=== PATIENT | male | born 1990 | race Caucasian/White ===

== ENCOUNTER 2019-10-11 21:48 | Inpatient (IN) | payer OTHER ==
[~2019-10-11] VITALS: Ht 172.7 cm; Wt 72.6 kg
[2019-10-11] MEDS ORDERED: ONDANSETRON 4 MG/2 ML VIAL IV ONE (22:30)
[2019-10-11] MEDS ORDERED: IV NORMAL SALINE 1000 ML BAG IV ONE (22:30)
[2019-10-11 22:46] LABS: BASOPHILS # (AUTO) 0.1 K/uL (0.0-8.0); BASOPHILS % (AUTO) 2.6 % (0.0-2.0); EOSINOPHILS # (AUTO) 0.1 K/uL (0.0-0.7); EOSINOPHILS % (AUTO) 2.3 % (0.0-7.0); HEMATOCRIT 48.6 % (36.7-47.1); LYMPHOCYTES # (AUTO) 1.7 K/uL (20.0-40.0); LYMPHOCYTES % (AUTO) 41.5 % (20.5-51.5); MEAN CORPUSCULAR HEMOGLOBIN 33.5 uug (23.8-33.4); MEAN CORPUSCULAR HGB CONC 35 g/dL (32.5-36.3); MEAN CORPUSCULAR VOLUME 95.9 fL (73.0-96.2); MONOCYTES # (AUTO) 0.5 K/uL (2.0-10.0); NEUTROPHILS # (AUTO) 1.8 K/uL (1.8-8.9); NEUTROPHILS % (AUTO) 42.6 % (38.5-71.5); PLATELET COUNT (AUTO) 218 K/uL (152-348); RED BLOOD CELL COUNT(AUTO) 5.07 MIL/uL (4.06-5.63); WHITE BLOOD COUNT (AUTO) 4.2 K/uL (3.6-10.2)
[2019-10-11 22:55] LABS: *BILIRUBIN,URIN NEGATIVE (NEGATIVE); *BLOOD, URINE NEGATIVE (NEGATIVE); *CLARITY,URINE CLEAR (CLEAR); *COLOR,URINE YELLOW (YELLOW); *KETONES,URINE NEGATIVE (NEGATIVE); *UROBILINOGEN,URINE 0.2 E.U./dl (NORMAL); LEUKOCYTE ESTERASE ,URINE NEGATIVE (NEGATIVE); NITRITE, URINE NEGATIVE (NEGATIVE); UGLUCOSE NEGATIVE (NEGATIVE)
[2019-10-11 23:05] LABS: CREATININE 0.8 mg/dL (0.6-1.3); POTASSIUM 3.4 mmol/L (3.5-5.1)
[2019-10-11 23:09] LABS: BILIRUBIN,DIRECT 0.2 mg/dL (0.0-0.2); BILIRUBIN,TOTAL 0.8 mg/dL (0.2-1.0); TOTAL PROTEIN, SERUM 7.8 g/dL (6.4-8.2)
[2019-10-11 23:13] LABS: *AMPHETAMINE, URINE NEGATIVE (NEGATIVE); *BARBITURATE, URINE NEGATIVE (NEGATIVE); *CANNABINOID, URINE NEGATIVE (NEGATIVE); *COCCAINE, URINE NEGATIVE (NEGATIVE); *OPIATE, URINE NEGATIVE (NEGATIVE); *PHENCYCLIDINE SCREEN,URINE NEGATIVE (NEGATIVE)
--- NOTE | 2019-10-11 23:55 | NUR ---
PT STATED: " I WANT TO SEE A PSYCHIATRIST. I FEEL LIKE I AM DROWNING MYSELF TO , I AM DEPRESSED." PT STATES HE WANTED TO KILL HIMSELF BUT DENIES ANY PLAN PLACED ON SI PRECAUTIONS ERMD AWARE PT STILL NOT MEDICALLY CLEAR DUE TO TACHYCARDIA
--- NOTE | 2019-10-12 00:58 | NUR ---
WAITING FOR [facility] (INSURANCE) AUTH TO ADMIT DX: TACHYCARDIA BED TYPE: TELE UNSTABLE FOR TRANSFER AT THIS TIME
--- NOTE | 2019-10-12 02:00 | NUR ---
PENDING CALL BACK CASE MANAGE ([facility]): ASKED FOR VITALS. STATES THAT CUSTOMER RETENTION SPECIALIST WILL CALL BACK WITHIN 23HRS FR NOW FAXED CLIBNICALS TO [facility] [phone] CALL BACK NUMBER [phone]
[2019-10-12] MEDS ORDERED: CHLORDIAZEPOXIDE HCL 25 MG CAPSULE ONE (02:24)
[2019-10-12] MEDS ORDERED: CHLORDIAZEPOXIDE HCL 25 MG CAPSULE PO ONE (02:30)
--- NOTE | 2019-10-12 03:00 | NUR ---
[facility] APPROVED PT FOR INPATIENT OBSERVATION CALLED [facility] DIRECTOR INSTRUCTIONAL MATERIAL: VERÓNICA BYRD CALL FOR BED DONE: TELE RM [phone]
[2019-10-12] MEDS ORDERED: HYDROCODONE/APAP 5-325MG TABLET PO PRN (03:15)
[2019-10-12] MEDS ORDERED: MAGNESIUM HYDROXIDE 30 ML LIQUID UDC PO PRN (03:15)
[2019-10-12] MEDS ORDERED: ACETAMINOPHEN 325 MG TABLET PO PRN (03:15)
[2019-10-12] MEDS ORDERED: ONDANSETRON 4 MG/2 ML VIAL IV PRN (03:15)
[2019-10-12] MEDS ORDERED: Z GUARD REMEDY PASTE 57 GM TUBE TOP PRN (03:15)
[2019-10-12] MEDS ORDERED: TEMAZEPAM 15 MG CAPSULE PO PRN (03:15)
--- NOTE | 2019-10-12 03:24 | NUR ---
HAND OFF AND SBAR GIVEN TO MADISYN
--- NOTE | 2019-10-12 05:32 | NUR ---
transported pt via [facility] by nicole ramsey ra
[2019-10-12] MEDS: IV NS 1000 ML 1,000 ML IV PRN ×3 (05:41→20:26)
--- NOTE | 2019-10-12 05:45 | NUR ---
RECEIVED PATIENT AWAKE VIA GURNEY. A/OX4. APPROPRIATE WHEN APPROACHED. DENIES PAIN, JUST C/O OF "SHAKING." BP ELEVATED UPON ARRIVAL. ALL OTHER VSS. IVF HEPLOCK NOTED TO LEFT AC #18 GAUGE. ORIENTED PATIENT TO ROOM AND CALL LIGHT. ALL NEEDS ATTENDED. WILL CONTINUE TO MONITOR AND ASSESS. CALL LIGHT IN REACH.
[2019-10-12] MEDS: LORAZEPAM 2 MG/1 ML VIAL IV PRN ×2 (05:49→12:55)
--- NOTE | 2019-10-12 05:50 | NUR ---
PATIENT GIVEN ATIVAN 1MG IV PER CLIENT SUCCESS SPECIALIST. WILL CONTINUE TO MONITOR AND ASSESS. IVF INFUSING WELL TO LEFT AC. CALL LIGHT IN REACH. ALL NEEDS ATTENDED.
[2019-10-12] MEDS: PANTOPRAZOLE SODIUM 40 MG TABLET.DR PO SCH (06:11)
--- NOTE | 2019-10-12 06:40 | NUR ---
PATIENT AWAKE ON TELE SR 90'S. WILL CONTINUE TO MONITOR AND ASSESS.
[2019-10-12 06:47] VITALS: BP 137/94
[2019-10-12] MEDS: THIAMINE HCL 100 MG TABLET PO SCH (08:01)
[2019-10-12 11:12] VITALS: BP 116/68
[2019-10-12] MEDS ORDERED: POTASSIUM CHLORIDE 20 MEQ TAB.PRT.SR PO ONE (14:00)
[2019-10-12] MEDS: FOLIC ACID 1 MG TABLET PO SCH (14:27)
[2019-10-12 14:43] LABS: BASOPHILS # (AUTO) 0.1 K/uL (0.0-8.0); BASOPHILS % (AUTO) 1.4 % (0.0-2.0); EOSINOPHILS # (AUTO) 0.1 K/uL (0.0-0.7); EOSINOPHILS % (AUTO) 2.2 % (0.0-7.0); HEMATOCRIT 42.1 % (36.7-47.1); HEMOGLOBIN 14.5 g/dL (12.5-16.3); LYMPHOCYTES # (AUTO) 1.4 K/uL (20.0-40.0); LYMPHOCYTES % (AUTO) 29.1 % (20.5-51.5); MEAN CORPUSCULAR HGB CONC 34 g/dL (32.5-36.3); MEAN CORPUSCULAR VOLUME 95.9 fL (73.0-96.2); MONOCYTES # (AUTO) 0.6 K/uL (2.0-10.0); MONOCYTES % (AUTO) 12.7 % (0.0-11.0); NEUTROPHILS # (AUTO) 2.7 K/uL (1.8-8.9); NEUTROPHILS % (AUTO) 54.6 % (38.5-71.5); PLATELET COUNT (AUTO) 157 K/uL (152-348); RED BLOOD CELL COUNT(AUTO) 4.39 MIL/uL (4.06-5.63); WHITE BLOOD COUNT (AUTO) 4.9 K/uL (3.6-10.2)
[2019-10-12 14:55] LABS: CREATININE 0.9 mg/dL (0.6-1.3); MAGNESIUM 1.3 mg/dL (1.8-2.4); POTASSIUM 3.6 mmol/L (3.5-5.1)
[2019-10-12] MEDS: AZITHROMYCIN 250 MG TABLET PO SCH (15:28)
[2019-10-12] MEDS: CHLORDIAZEPOXIDE HCL 25 MG CAPSULE PO SCH (15:28)
[2019-10-12] MEDS: GUAIFENESIN LA 600 MG TABLET.SA PO SCH ×2 (15:28→20:29)
[2019-10-12] MEDS ORDERED: MAGNESIUM OXIDE 400 MG TABLET PO ONE (16:00)
[2019-10-12 16:12] VITALS: BP 124/78
--- NOTE | 2019-10-12 20:00 | NUR ---
RECEIVED PATIENT AWAKE IN BED. A/O X4. DENIES PAIN OR DISCOMFORT. NO RESP. DISTRESS NOTED. IVF INFUSING WELL TO LEFT AC #20 GAUGE. VSS. ON TELE SR. CALL LIGHT IN REACH. ALL NEEDS ATTENDED. WILL CONTINUE TO MONITOR AND ASSES.
[2019-10-12 20:07] VITALS: BP 123/75
[2019-10-13 00:20] VITALS: BP 137/83
[2019-10-13] MEDS: CHLORDIAZEPOXIDE HCL 25 MG CAPSULE PO SCH ×2 (02:35→13:55)
[2019-10-13 05:18] VITALS: BP 137/91
[2019-10-13] MEDS: IV NS 1000 ML 1,000 ML IV PRN ×2 (05:28→13:55)
[2019-10-13 05:56] LABS: BASOPHILS # (AUTO) 0.1 K/uL (0.0-8.0); BASOPHILS % (AUTO) 1.3 % (0.0-2.0); EOSINOPHILS # (AUTO) 0.2 K/uL (0.0-0.7); EOSINOPHILS % (AUTO) 2.7 % (0.0-7.0); HEMATOCRIT 43.9 % (36.7-47.1); HEMOGLOBIN 15.4 g/dL (12.5-16.3); LYMPHOCYTES # (AUTO) 1.6 K/uL (20.0-40.0); LYMPHOCYTES % (AUTO) 26.6 % (20.5-51.5); MEAN CORPUSCULAR HEMOGLOBIN 33.7 uug (23.8-33.4); MEAN CORPUSCULAR HGB CONC 35 g/dL (32.5-36.3); MEAN CORPUSCULAR VOLUME 96.3 fL (73.0-96.2); MONOCYTES # (AUTO) 0.6 K/uL (2.0-10.0); MONOCYTES % (AUTO) 9.9 % (0.0-11.0); NEUTROPHILS # (AUTO) 3.6 K/uL (1.8-8.9); NEUTROPHILS % (AUTO) 59.5 % (38.5-71.5); PLATELET COUNT (AUTO) 155 K/uL (152-348); RED BLOOD CELL COUNT(AUTO) 4.56 MIL/uL (4.06-5.63)
[2019-10-13 06:13] LABS: CREATININE 0.8 mg/dL (0.6-1.3); MAGNESIUM 1.3 mg/dL (1.8-2.4); PHOSPHOROUS 2.5 mg/dL (2.5-4.9); POTASSIUM 4.2 mmol/L (3.5-5.1)
[2019-10-13] MEDS: PANTOPRAZOLE SODIUM 40 MG TABLET.DR PO SCH (06:15)
--- NOTE | 2019-10-13 06:41 | NUR ---
PATIENT AWAKE IN BED. SLEPT AT SMALL INTERVALS. IVF INFUSING WELL. VSS. ON TELE SR. CALL LIGHT IN REACH. ALL NEEDS ATTENDED. WILL CONTINUE TO MONITOR. WILL CONTINUE TO MONITOR AND ASSESS.
--- NOTE | 2019-10-13 07:45 | NUR ---
Awake, alert, oriented x 4, verbalized not sleeping well at night, denies tremors, anxiety. IVF infusing well
[2019-10-13] MEDS: GUAIFENESIN LA 600 MG TABLET.SA PO SCH ×2 (09:17→21:25)
[2019-10-13] MEDS: FOLIC ACID 1 MG TABLET PO SCH (09:17)
[2019-10-13] MEDS: THIAMINE HCL 100 MG TABLET PO SCH (09:17)
[2019-10-13 11:15] VITALS: BP 142/93
[2019-10-13] MEDS: AZITHROMYCIN 250 MG TABLET PO SCH (13:55)
--- NOTE | 2019-10-13 14:00 | NUR ---
Sleeping most of the times.
[2019-10-13 15:10] VITALS: BP 118/85
[2019-10-13] MEDS: MAGNESIUM SULFATE/D5W 100 ML IV SCH ×4 (15:43→19:02)
--- NOTE | 2019-10-13 16:15 | NUR ---
Mg 1.3; Magnesium 4 gm IV ordered, started infusion
--- NOTE | 2019-10-13 20:00 | NUR ---
Patient received into care, laying in bed, sleeping. Patient is easily to arouse and has no complaints of pain or discomfort at this time. Safety, fall, and seizure precaution measures are in place. Call light and personal items are within reach at all times. Will continue to monitor and assess.
[2019-10-13 20:16] VITALS: BP 126/81
[2019-10-14] MEDS: CHLORDIAZEPOXIDE HCL 25 MG CAPSULE PO SCH (01:33)
[2019-10-14] MEDS: IV NS 1000 ML 1,000 ML IV PRN (02:22)
[2019-10-14 05:23] VITALS: BP 140/88
[2019-10-14] MEDS: PANTOPRAZOLE SODIUM 40 MG TABLET.DR PO SCH (06:14)
--- NOTE | 2019-10-14 06:25 | NUR ---
Patient awoke at approximately 2300h last night and has remained awake for the duration of this shift. watching television in bed, resting comfortably. Patient had no complaints of pain or discomfort this shift. All prescribed medications provided as ordered and tolerated well, with no adverse side effects verbalized by patient, or noted/observed by nurse. Call light and personal items remain within reach at all times. Safety, seizure, and fall precaution measures remain in place.
[2019-10-14 06:57] LABS: CARBON DIOXIDE 29 mmol/L (21-32); CHLORIDE 100 mmol/L (98-107); CREATININE 0.6 mg/dL (0.6-1.3); GLUCOSE 86 mg/dL (74-106); POTASSIUM 3.8 mmol/L (3.5-5.1); UREA NITROGEN, BLOOD 5 mg/dL (7-18)
[2019-10-14] MEDS: THIAMINE HCL 100 MG TABLET PO SCH (09:01)
[2019-10-14] MEDS: GUAIFENESIN LA 600 MG TABLET.SA PO SCH (09:01)
[2019-10-14] MEDS: FOLIC ACID 1 MG TABLET PO SCH (09:01)
[2019-10-14 11:14] VITALS: BP 128/86
--- NOTE | 2019-10-14 13:00 | NUR ---
Pt A/O x4. No distress noted or reported. Pt denied any pain or discomfort. Discharge instructions given. Pt has all belongings. Pt safety maintained during shift. Pt verbalized understanding of discharge instructions. PIV removed. No bleeding or oozing noted. Pt safely discharged.
--- NOTE | 2019-10-15 10:43 | NUR ---
Cultural Historian consultation submitted on 10/12/2019. This SW was not available on 10/12/2019. Patient discharged on 10/14/2019. Music Department Chair unable to complete consultation.
== END 2019-10-14 13:15 | disposition home or self-care (01) | DRG 816 ==
LOC: ER 21:48 → TELE3 10-12 04:40 → MEDSURG3 10-13 10:30
PROVIDERS: ADMIT Nurse Practitioner Acute Care; ATTEND Nurse Practitioner Acute Care
DX: T40.5X1A Poisoning by cocaine, accidental (unintentional), initial encounter (principal); G92 Toxic encephalopathy; T51.0X1A Toxic effect of ethanol, accidental (unintentional), initial encounter; Y90.8 Blood alcohol level of 240 mg/100 ml or more; F10.239 Alcohol dependence with withdrawal, unspecified; Y92.019 Unspecified place in single-family (private) house as the place of occurrence of the external cause; E87.6 Hypokalemia; E86.0 Dehydration; J40 Bronchitis, not specified as acute or chronic; Z91.81 History of falling; R74.0 Nonspecific elevation of levels of transaminase and lactic acid dehydrogenase [LDH]
CPT/HCPCS: 36415; 70450; 71045; 72125; 80307; 83690; 83735; 84100; 85025; 87400; 93005; A4663; G0378; G0480; J2060; J2405; J3475; J7030; Q0144

== ENCOUNTER 2020-01-02 18:30 | Inpatient (IN) | payer OTHER ==
[~2020-01-02] VITALS: Ht 172.7 cm; Wt 81.6 kg
[~2020-01-02 18:30] MED LIST: AZIT250T13 PO; CHLO25CA22 PO
--- NOTE | 2020-01-02 18:31 | NUR ---
Attempted to triage pt, but pt is not sure if want to be seen by Md. pt states "i'm very afraid to get COVID'. pt requested to "think".
[2020-01-02] MEDS ORDERED: IV NORMAL SALINE 500 ML BAG IV ONE (19:15)
[2020-01-02] MEDS ORDERED: FAMOTIDINE. 20 MG/2 ML VIAL IV ONE ×2 (19:15→19:53)
[2020-01-02] MEDS ORDERED: LORAZEPAM 2 MG/1 ML VIAL IV ONE ×3 (19:15→23:15)
[2020-01-02] MEDS ORDERED: MAG HYDROX/AL HYDROX/SIMETH 30 ML LIQUID UDC PO ONE (19:15)
[2020-01-02] MEDS ORDERED: LIDOCAINE VISCUS 2% 15 ML UDC MM ONE (19:15)
[2020-01-02] MEDS ORDERED: ONDANSETRON 4 MG/2 ML VIAL IV ONE (19:15)
[2020-01-02] MEDS ORDERED: ACETAMINOPHEN ES 500 MG TABLET PO ONE (19:30)
[2020-01-02 19:31] LABS: BASOPHILS % (AUTO) 0.4 % (0.0-2.0); EOSINOPHILS # (AUTO) 0.1 K/uL (0.0-0.7); HEMATOCRIT 48.1 % (36.7-47.1); HEMOGLOBIN 16.5 g/dL (12.5-16.3); LYMPHOCYTES # (AUTO) 1.4 K/uL (20.0-40.0); LYMPHOCYTES % (AUTO) 14.6 % (20.5-51.5); MEAN CORPUSCULAR HEMOGLOBIN 32.8 uug (23.8-33.4); MEAN CORPUSCULAR HGB CONC 34 g/dL (32.5-36.3); MEAN CORPUSCULAR VOLUME 95.4 fL (73.0-96.2); MONOCYTES # (AUTO) 0.4 K/uL (2.0-10.0); MONOCYTES % (AUTO) 4.5 % (0.0-11.0); NEUTROPHILS # (AUTO) 7.8 K/uL (1.8-8.9); NEUTROPHILS % (AUTO) 79.5 % (38.5-71.5); PLATELET COUNT (AUTO) 238 K/uL (152-348); RED BLOOD CELL COUNT(AUTO) 5.05 MIL/uL (4.06-5.63); WHITE BLOOD COUNT (AUTO) 9.8 K/uL (3.6-10.2)
[2020-01-02 19:33] LABS: CARBON DIOXIDE 22 mmol/L (21-32); CHLORIDE 98 mmol/L (98-107); CREATININE 0.9 mg/dL (0.6-1.3); GLUCOSE 86 mg/dL (74-106); MAGNESIUM 1.6 mg/dL (1.8-2.4); POTASSIUM 3.9 mmol/L (3.5-5.1); UREA NITROGEN, BLOOD 12 mg/dL (7-18)
[2020-01-02 19:39] LABS: ACETAMINOPHEN < 2.0 ug/mL (10-30); ALANINE AMINOTRANSFERASE 34 U/L (16-63); ALKALINE PHOSPHATASE 85 U/L (50-136); ASPARTATE AMINOTRANSFERASE 39 U/L (15-37); BILIRUBIN,DIRECT 0.2 mg/dL (0.0-0.2); BILIRUBIN,TOTAL 0.5 mg/dL (0.2-1.0); TOTAL PROTEIN, SERUM 7.6 g/dL (6.4-8.2)
[2020-01-02 19:44] LABS: ETHANOL 261 MG/DL (0-0)
[2020-01-02] MEDS ORDERED: ONDANSETRON 4 MG/2 ML VIAL ONE (19:53)
[2020-01-02] MEDS ORDERED: LORAZEPAM 2 MG/1 ML VIAL ONE ×3 (19:55→23:18)
[2020-01-02] MEDS ORDERED: ACETAMINOPHEN ES 500 MG TABLET ONE (20:05)
[2020-01-02] MEDS ORDERED: MAG HYDROX/AL HYDROX/SIMETH 30 ML LIQUID UDC ONE (20:06)
[2020-01-02] MEDS ORDERED: LIDOCAINE VISCUS 2% 15 ML UDC ONE (20:06)
[2020-01-02] MEDS ORDERED: MAGNESIUM SULFATE/D5W 100 ML ONE ×2 (20:14→20:35)
[2020-01-02] MEDS: MAGNESIUM SULFATE/D5W 100 ML IV SCH ×2 (20:20→20:50)
[2020-01-02 20:31] LABS: *BILIRUBIN,URIN NEGATIVE (NEGATIVE); *BLOOD, URINE NEGATIVE (NEGATIVE); *CLARITY,URINE CLEAR (CLEAR); *COLOR,URINE YELLOW (YELLOW); *KETONES,URINE 2+ (NEGATIVE); *UROBILINOGEN,URINE 0.2 E.U./dl (NORMAL); LEUKOCYTE ESTERASE ,URINE NEGATIVE (NEGATIVE); NITRITE, URINE NEGATIVE (NEGATIVE); UGLUCOSE NEGATIVE (NEGATIVE)
[2020-01-02 20:39] LABS: MUCUS,URINE FEW /LPF (0-FEW); WBC,URINE 0-3 /HPF (0-3)
[2020-01-02 20:43] LABS: *AMPHETAMINE, URINE NEGATIVE (NEGATIVE); *BARBITURATE, URINE NEGATIVE (NEGATIVE); *CANNABINOID, URINE NEGATIVE (NEGATIVE); *COCCAINE, URINE POSITIVE (NEGATIVE); *OPIATE, URINE NEGATIVE (NEGATIVE); *PHENCYCLIDINE SCREEN,URINE NEGATIVE (NEGATIVE)
--- NOTE | 2020-01-02 21:20 | NUR ---
Magnesium infusion completed.
[2020-01-02] MEDS ORDERED: DOXYCYCLINE HYCLATE 100 MG TABLET PO ONE (22:00)
[2020-01-02] MEDS ORDERED: DOXYCYCLINE HYCLATE 100 MG TABLET ONE (23:09)
--- NOTE | 2020-01-03 00:08 | NUR ---
Patel us, Galilea Rdz N.P netsuite consultant.
[2020-01-03] MEDS ORDERED: IV NS 1000 ML 1,000 ML IV PRN (00:11)
[2020-01-03] MEDS ORDERED: Z GUARD REMEDY PASTE 57 GM TUBE TOP PRN (00:15)
[2020-01-03] MEDS ORDERED: ONDANSETRON 4 MG/2 ML VIAL IV PRN (00:15)
[2020-01-03] MEDS ORDERED: THIAMINE HCL 100 MG TABLET PO ONE (00:15)
[2020-01-03] MEDS ORDERED: MAGNESIUM HYDROXIDE 30 ML LIQUID UDC PO PRN (00:15)
[2020-01-03] MEDS ORDERED: HYDROCODONE/APAP 5-325MG TABLET PO PRN (00:15)
[2020-01-03] MEDS ORDERED: ACETAMINOPHEN 325 MG TABLET PO PRN (00:15)
--- NOTE | 2020-01-03 00:18 | NUR ---
Pt. admitted to [facility] , under care of Galilea Rdz, VP OF TECHNOLOGY Belongs List completed.
[2020-01-03] MEDS ORDERED: THIAMINE HCL 100 MG TABLET ONE (00:57)
--- NOTE | 2020-01-03 01:30 | NUR ---
admitted.male with complained of abdominal pain,alert x3, no complaints resting comfortably, oriented to room and call [facility],
[2020-01-03 01:35] VITALS: BP 124/79
[2020-01-03] MEDS: LORAZEPAM 2 MG/1 ML VIAL IV PRN ×2 (05:26→10:07)
[2020-01-03 06:30] VITALS: BP 129/79
[2020-01-03] MEDS ORDERED: PANTOPRAZOLE SODIUM 40 MG TABLET.DR PO SCH (07:00)
[2020-01-03 12:00] VITALS: BP 139/98
--- NOTE | 2020-01-03 14:50 | NUR ---
Pt received and assessed this morning, denies pain, c/o headache and the "shakes", no acute distress noted. PRN medication administered per MD orders, Pt reported effective. Pt seen by MD. Discharge orders received. IV removed, intact. VS stable with slightly elevated Hr, Pt stated "probably cause I'm excited to leave". Diet advanced as tolerated to regular, breakfast and lunch meals tolerated well. All discharge concerns addressed. Pt teaching material provided. Discharge paperwork discussed, signed, copies placed in chart, and originals given to Pt. Personal belongings accounted for and list signed. Skin integrity intact. No home medications or Rx to return. Pt dressed and safety escorted via wheelchair into private [employer], ordered by patient. Will remove Pt from system shortly.
== END 2020-01-03 16:20 | disposition home or self-care (01) | DRG 775 ==
LOC: ER 18:33 → TELE3 01-03 00:26
DX: F10.239 Alcohol dependence with withdrawal, unspecified (principal); E83.42 Hypomagnesemia; Z87.891 Personal history of nicotine dependence; Y90.8 Blood alcohol level of 240 mg/100 ml or more
CPT/HCPCS: 36415; 70450; 72125; 80307; 80329; 83690; 83735; 85025; A4663; A9150; G0378; G0480; G0480-TC; J2060; J2405; J3475; J3490; J7030

== ENCOUNTER 2020-02-11 17:44 | Emergency (ER) | payer OTHER ==
[~2020-02-11] VITALS: Ht 175.3 cm; Wt 83.9 kg
[2020-02-11] MEDS ORDERED: IV NORMAL SALINE 1000 ML BAG IV ONE (18:00)
[2020-02-11] MEDS ORDERED: MAG HYDROX/AL HYDROX/SIMETH 30 ML LIQUID UDC PO ONE (20:15)
[2020-02-11] MEDS ORDERED: PANTOPRAZOLE SODIUM 40 MG TABLET.DR PO ONE ×2 (20:15→20:19)
[2020-02-11] MEDS ORDERED: LIDOCAINE VISCUS 2% 15 ML UDC MM ONE (20:15)
[2020-02-11] MEDS ORDERED: MAG HYDROX/AL HYDROX/SIMETH 30 ML LIQUID UDC ONE (20:19)
[2020-02-11] MEDS ORDERED: LIDOCAINE VISCUS 2% 15 ML UDC ONE (20:19)
[2020-02-11] MEDS ORDERED: CHLORDIAZEPOXIDE HCL 25 MG CAPSULE ONE (20:22)
--- NOTE | 2020-02-11 20:23 | NUR ---
IV removed. Catheter intact and site benign. Pressure and 4x4 gauze applied to site. No bleeding noted.
--- NOTE | 2020-02-11 20:24 | NUR ---
Patient discharged to home in stable condition. Written and verbal after care instructions given. Patient verbalizes understanding of instructions. Stressed follow up or return to ER for worsening s/s.
[2020-02-11 20:29] VITALS: BP 133/88
[2020-02-11] MEDS ORDERED: CHLORDIAZEPOXIDE HCL 25 MG CAPSULE PO ONE (20:30)
--- NOTE | 2020-02-11 20:32 | NUR ---
PATIENT WAS PICKED UP BY FRIEND TEMO. PATIENT STEADY NORMAL GAIT.
== END 2020-02-11 20:32 | disposition home or self-care (01) ==
LOC: ER 17:48
DX: F10.229 Alcohol dependence with intoxication, unspecified (principal); Y90.8 Blood alcohol level of 240 mg/100 ml or more; F19.10 Other psychoactive substance abuse, uncomplicated
CPT/HCPCS: 36415; A4663; G0480; J7030

== ENCOUNTER 2020-03-18 20:57 | Emergency (ER) | payer OTHER ==
[~2020-03-18] VITALS: Ht 170.2 cm; Wt 81.6 kg
[2020-03-18] MEDS ORDERED: NITROGLYCERIN 0.4 MG/TAB BOTTLE SL ONE ×2 (21:08→21:15)
[2020-03-18] MEDS ORDERED: LABETALOL HCL 100 MG/20 ML VIAL ONE (21:08)
--- NOTE | 2020-03-18 21:10 | NUR ---
Patient ambulated with stable gait. Speech is slurred, and patient reeks of alcohol. Patient is able to ambulate, but with unsteady gait. Respiratory even and unlabored, no cough no sob. Patient does complain of chest discomfort. Denies any n/v/d. Patient in bed at lowest position, sr upx2, safety precautions implemented per protocol.
[2020-03-18] MEDS ORDERED: ASPIRIN 81 MG TAB.CHEW ONE (21:11)
[2020-03-18] MEDS ORDERED: NITROGLYCERIN OINT 1 GM PACKET TP ONE ×2 (21:11→21:15)
[2020-03-18] MEDS ORDERED: LORAZEPAM 2 MG/1 ML VIAL ONE (21:13)
[2020-03-18] MEDS ORDERED: ASPIRIN 81 MG TAB.CHEW PO ONE (21:15)
[2020-03-18] MEDS ORDERED: LABETALOL HCL 100 MG/20 ML VIAL IV ONE (21:15)
[2020-03-18] MEDS ORDERED: LORAZEPAM 2 MG/1 ML VIAL IV ONE (21:15)
[2020-03-18 21:22] LABS: BASOPHILS # (AUTO) 0.1 K/uL (0.0-8.0); BASOPHILS % (AUTO) 1.2 % (0.0-2.0); EOSINOPHILS # (AUTO) 0.3 K/uL (0.0-0.7); EOSINOPHILS % (AUTO) 5.2 % (0.0-7.0); HEMATOCRIT 48.7 % (36.7-47.1); HEMOGLOBIN 17.1 g/dL (12.5-16.3); LYMPHOCYTES # (AUTO) 3.4 K/uL (20.0-40.0); LYMPHOCYTES % (AUTO) 52.9 % (20.5-51.5); MEAN CORPUSCULAR HEMOGLOBIN 32.8 uug (23.8-33.4); MEAN CORPUSCULAR HGB CONC 35 g/dL (32.5-36.3); MEAN CORPUSCULAR VOLUME 93.6 fL (73.0-96.2); MONOCYTES # (AUTO) 0.6 K/uL (2.0-10.0); MONOCYTES % (AUTO) 9.1 % (0.0-11.0); NEUTROPHILS # (AUTO) 2.1 K/uL (1.8-8.9); NEUTROPHILS % (AUTO) 31.6 % (38.5-71.5); PLATELET COUNT (AUTO) 273 K/uL (152-348); RED BLOOD CELL COUNT(AUTO) 5.21 MIL/uL (4.06-5.63); WHITE BLOOD COUNT (AUTO) 6.5 K/uL (3.6-10.2)
[2020-03-18 21:25] LABS: CARBON DIOXIDE 26 mmol/L (21-32); CHLORIDE 104 mmol/L (98-107); CREATININE 1.1 mg/dL (0.6-1.3); GLUCOSE 128 mg/dL (74-106); POTASSIUM 3.6 mmol/L (3.5-5.1); UREA NITROGEN, BLOOD 7 mg/dL (7-18)
[2020-03-18 21:35] LABS: ACETAMINOPHEN < 2.0 ug/mL (10-30)
[2020-03-18 21:45] LABS: ALANINE AMINOTRANSFERASE 29 U/L (16-63); ALKALINE PHOSPHATASE 93 U/L (50-136); BILIRUBIN,DIRECT < 0.1 mg/dL (0.0-0.2); BILIRUBIN,TOTAL 0.3 mg/dL (0.2-1.0); TOTAL PROTEIN, SERUM 7.8 g/dL (6.4-8.2)
[2020-03-18] MEDS ORDERED: IV NORMAL SALINE 1000 ML BAG IV ONE (21:45)
[2020-03-18 22:01] LABS: ASPARTATE AMINOTRANSFERASE 98 U/L (15-37)
[2020-03-18 22:26] LABS: *AMPHETAMINE, URINE NEGATIVE (NEGATIVE); *BARBITURATE, URINE NEGATIVE (NEGATIVE); *CANNABINOID, URINE NEGATIVE (NEGATIVE); *COCCAINE, URINE POSITIVE (NEGATIVE); *OPIATE, URINE NEGATIVE (NEGATIVE); *PHENCYCLIDINE SCREEN,URINE NEGATIVE (NEGATIVE)
[2020-03-18 23:05] LABS: *BILIRUBIN,URIN NEGATIVE (NEGATIVE); *BLOOD, URINE NEGATIVE (NEGATIVE); *CLARITY,URINE CLEAR (CLEAR); *COLOR,URINE YELLOW (YELLOW); *KETONES,URINE NEGATIVE (NEGATIVE); *UROBILINOGEN,URINE 0.2 E.U./dl (NORMAL); LEUKOCYTE ESTERASE ,URINE NEGATIVE (NEGATIVE); NITRITE, URINE NEGATIVE (NEGATIVE); PH,URINE 6.5 (5.0-8.0); UGLUCOSE NEGATIVE (NEGATIVE)
[2020-03-19] MEDS ORDERED: MAG HYDROX/AL HYDROX/SIMETH 30 ML LIQUID UDC PO ONE (00:15)
[2020-03-19] MEDS ORDERED: MAG HYDROX/AL HYDROX/SIMETH 30 ML LIQUID UDC ONE (00:15)
[2020-03-19] MEDS ORDERED: DICYCLOMINE HCL LIQ 10 MG/5 ML UDC PO ONE (00:15)
[2020-03-19] MEDS ORDERED: LIDOCAINE VISCUS 2% 15 ML UDC MM ONE (00:15)
[2020-03-19] MEDS ORDERED: DICYCLOMINE HCL LIQ 10 MG/5 ML UDC ONE (00:16)
[2020-03-19] MEDS ORDERED: LIDOCAINE VISCUS 2% 15 ML UDC ONE (00:16)
[2020-03-19] MEDS ORDERED: CHLORDIAZEPOXIDE HCL 25 MG CAPSULE PO ONE (00:30)
[2020-03-19] MEDS ORDERED: CHLORDIAZEPOXIDE HCL 25 MG CAPSULE ONE (00:59)
--- NOTE | 2020-03-19 01:24 | NUR ---
Patient discharged to home in stable condition. Written and verbal after care instructions given. Patient verbalizes understanding of instructions. Stressed follow up or return to ER for worsening s/s. Patient picked up by friend, able to walk unasissted with steady gait. IV removed. Catheter intact and site benign. Pressure and 4x4 gauze applied to site. No bleeding noted.
[2020-03-19 01:34] VITALS: BP 121/73
== END 2020-03-19 01:34 | disposition home or self-care (01) ==
LOC: ER 20:59
DX: R07.9 Chest pain, unspecified (principal); F10.229 Alcohol dependence with intoxication, unspecified; F14.129 Cocaine abuse with intoxication, unspecified; Y90.8 Blood alcohol level of 240 mg/100 ml or more; F17.210 Nicotine dependence, cigarettes, uncomplicated; Z82.49 Family history of ischemic heart disease and other diseases of the circulatory system; F41.9 Anxiety disorder, unspecified
CPT/HCPCS: 36415 ×2; 71045; 80048; 80076; 80307 ×2; 80329; 81001; 83880; 84484 ×2; 85025; 85379; 85730; 93005; 96361; 96374; 96375; 99285; 99406; G0480; J2060; J3490; 70030-TC; A4663; J7030

== ENCOUNTER 2021-05-03 20:17 | Emergency (ER) | payer OTHER ==
[~2021-05-03] VITALS: Ht 172.7 cm; Wt 83.0 kg
--- NOTE | 2021-05-03 20:27 | NUR ---
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 CP is non radiating. Pt states he was out drinking alcohol and took ectasy yesterday evening. Vss. a&ox4. No signs of distress. Denies sob, vision changes.
[2021-05-03] MEDS ORDERED: THIAMINE HCL 100 MG TABLET PO ONE (20:30)
[2021-05-03 20:32] LABS: HEMATOCRIT 47.6 % (36.7-47.1); MEAN CORPUSCULAR VOLUME 96.2 fL (73.0-96.2); PLATELET COUNT (AUTO) 314 K/uL (152-348)
[2021-05-03 20:41] LABS: CARBON DIOXIDE 24 mmol/L (21-32); CHLORIDE 99 mmol/L (98-107); CREATININE 1.1 mg/dL (0.6-1.3); GLUCOSE 89 mg/dL (74-106); POTASSIUM 3.9 mmol/L (3.5-5.1); UREA NITROGEN, BLOOD 9 mg/dL (7-18)
[2021-05-03 20:43] LABS: ETHANOL < 3 MG/DL (0-0)
[2021-05-03] MEDS ORDERED: THIAMINE HCL 100 MG TABLET ONE (20:43)
[2021-05-03] MEDS ORDERED: PROCHLORPERAZINE EDISYLATE 10 MG/2 ML VIAL ONE (20:43)
[2021-05-03] MEDS ORDERED: PROCHLORPERAZINE EDISYLATE 10 MG/2 ML VIAL IV ONE (20:45)
[2021-05-03] MEDS ORDERED: IV NS 1000 ML 1,000 ML IV ONE (20:45)
[2021-05-03 20:48] LABS: ALANINE AMINOTRANSFERASE 81 U/L (16-63); ALKALINE PHOSPHATASE 83 U/L (50-136); ASPARTATE AMINOTRANSFERASE 73 U/L (15-37); BILIRUBIN,DIRECT 0.1 mg/dL (0.0-0.2); BILIRUBIN,TOTAL 0.5 mg/dL (0.2-1.0)
[2021-05-03] MEDS ORDERED: MAGNESIUM SULFATE 2 GM in IV DEXTROSE 5% 100 ML IV ONE (21:15)
[2021-05-03] MEDS ORDERED: PROC-11 PO (21:39)
[2021-05-03] MEDS ORDERED: diphenhydrAMINE 50 MG/1 ML VIAL IM ONE (21:45)
[2021-05-03] MEDS ORDERED: MAGNESIUM SULFATE/D5W 200 ML ONE (21:46)
[2021-05-03] MEDS ORDERED: diphenhydrAMINE 50 MG/1 ML VIAL ONE (21:51)
--- NOTE | 2021-05-03 22:26 | NUR ---
Patient discharged to home in stable condition. Written and verbal after care instructions given. Patient verbalizes understanding of instructions. Stressed follow up or return to ER for worsening s/s. Walks with steady gait. All belongings taken. IV removed.
[2021-05-03 22:41] VITALS: BP 116/55
[2021-05-03 22:51] LABS: *AMPHETAMINE, URINE POSITIVE (NEGATIVE); *CANNABINOID, URINE NEGATIVE (NEGATIVE); *COCCAINE, URINE POSITIVE (NEGATIVE); *OPIATE, URINE NEGATIVE (NEGATIVE); *PHENCYCLIDINE SCREEN,URINE NEGATIVE (NEGATIVE)
== END 2021-05-03 22:43 | disposition home or self-care (01) ==
LOC: ER 20:19
DX: F41.9 Anxiety disorder, unspecified (principal); R74.01 Elevation of levels of liver transaminase levels; E83.42 Hypomagnesemia; F10.10 Alcohol abuse, uncomplicated; Y90.0 Blood alcohol level of less than 20 mg/100 ml; R11.0 Nausea
CPT/HCPCS: 36415; 80048; 80076; 80307; 80320; 83605; 83735; 84484; 85025; 93005; 96361; 96365; 96375; 99284; J0780; J1200; J3475; 70030-TC; A4663; G0480; J7030

== ENCOUNTER 2021-06-08 23:34 | Emergency (ER) | payer OTHER ==
[~2021-06-08] VITALS: Ht 172.7 cm; Wt 84.4 kg
[~2021-06-08 23:34] MED LIST changes: -AZIT250T13 PO; -CHLO25CA22 PO; +PROC-11 PO
--- NOTE | 2021-06-08 23:40 | NUR ---
Pt BIB RA straight back to ED2B, imediately put into gown and connected to bedside alarm security or surveillance monitor. VSS, 128/83, 105bpm, 98% SaO2 RA. emesis bag given due to dry heeving and complaints of nausea, dizziness and vertigo. States he's been drinking heavily x several days approx one week, states he's been "killing bottles of liqure, 750mL for several days".
--- NOTE | 2021-06-08 23:45 | NUR ---
EDMD at pt bedside to assess pt. Pt has good color, temp and appearance, VSS, PE WNL, strong and equal lye bath operator strength bilat, strong and reg pulses x4ext. oxygenating and perfusing well. Denies any pain or discomfort. Complaining of severe nausea. No s/sx of distress present.
--- NOTE | 2021-06-09 00:05 | NUR ---
20g IV inserted into lt forearm without difficulty, labs drawn and line flushed with 9cc NS. 1L NS bolus connected running wide open per EDMD order. Pt seems a little more with it and a slightly bit more lucid since vomiting large amt of emesis. EKG performed by surgical resident Albert.
[2021-06-09] MEDS: IV NORMAL SALINE 1000 ML BAG IV ONE ×2 (00:15→03:11)
[2021-06-09 00:17] LABS: HEMATOCRIT 51.5 % (36.7-47.1); MEAN CORPUSCULAR HEMOGLOBIN 32.8 uug (23.8-33.4); PLATELET COUNT (AUTO) 387 K/uL (152-348)
[2021-06-09 00:20] LABS: CREATININE 1.1 mg/dL (0.6-1.3); POTASSIUM 3.9 mmol/L (3.5-5.1)
[2021-06-09 00:25] LABS: MAGNESIUM 1.7 mg/dL (1.8-2.4); PHOSPHOROUS 3.4 mg/dL (2.5-4.9)
[2021-06-09 00:26] LABS: BILIRUBIN,DIRECT 0.1 mg/dL (0.0-0.2); BILIRUBIN,TOTAL 0.3 mg/dL (0.2-1.0); TOTAL PROTEIN, SERUM 8.4 g/dL (6.4-8.2)
[2021-06-09] MEDS ORDERED: LORAZEPAM 2 MG/1 ML VIAL ONE ×3 (00:27→01:49)
[2021-06-09] MEDS ORDERED: FAMOTIDINE. 20 MG/2 ML VIAL IV ONE (00:27)
[2021-06-09] MEDS ORDERED: ONDANSETRON 4 MG/2 ML VIAL ONE (00:28)
[2021-06-09] MEDS ORDERED: LIDOCAINE VISCUS 2% 15 ML UDC ONE (00:30)
[2021-06-09] MEDS ORDERED: MAGNESIUM HYDROXIDE 30 ML LIQUID UDC ONE (00:32)
[2021-06-09] MEDS: LORAZEPAM 2 MG/1 ML VIAL IV ONE ×2 (00:42→01:39)
[2021-06-09] MEDS: MAG HYDROX/AL HYDROX/SIMETH 30 ML LIQUID UDC PO ONE (00:43)
[2021-06-09] MEDS: FAMOTIDINE. 20 MG/2 ML VIAL IV ONE (00:43)
[2021-06-09] MEDS: ONDANSETRON 4 MG/2 ML VIAL IV ONE (00:43)
[2021-06-09] MEDS: LIDOCAINE VISCUS 2% 15 ML UDC MM ONE (00:43)
--- NOTE | 2021-06-09 01:20 | NUR ---
at pt bedside discussing current issues with alcohol and alcoholism. States that his maternal grandfather was an alcoholic and that it runs in the family. The topic of End-Stages Alcoholism was discussed with pt and some possible treament modalities such as counciling, rehab, AA, exhursion of will power, support groups, ect... Pt is able to have a lucid conversation at this point. AAOx4, becoming more lucid as time goes progresses.
--- NOTE | 2021-06-09 01:25 | NUR ---
Pt asked to go to bathroom to void. Specimen container given for sample. Pt voided large amt of clear yellow output.
[2021-06-09] MEDS: MAGNESIUM OXIDE 400 MG TABLET PO ONE (01:32)
[2021-06-09 01:37] LABS: *BILIRUBIN,URIN NEGATIVE (NEGATIVE); *BLOOD, URINE NEGATIVE (NEGATIVE); *CLARITY,URINE CLEAR (CLEAR); *COLOR,URINE YELLOW (YELLOW); *KETONES,URINE 3+ (NEGATIVE); *UROBILINOGEN,URINE 0.2 E.U./dl (NORMAL); LEUKOCYTE ESTERASE ,URINE NEGATIVE (NEGATIVE); NITRITE, URINE NEGATIVE (NEGATIVE); UGLUCOSE NEGATIVE (NEGATIVE)
[2021-06-09] MEDS ORDERED: MAGNESIUM OXIDE 400 MG TABLET ONE (01:41)
[2021-06-09 01:49] LABS: BACTERIA,URINE NONE SEEN /HPF (NONE SEEN); RBC,URINE 0-3 /HPF (0-3); WBC,URINE 0-3 /HPF (0-3)
[2021-06-09 01:50] LABS: COARSE GRANULAR CASTS,URINE 0-3 /LPF; MUCUS,URINE FEW /LPF (0-FEW); SQUAMOUS EPITHELIAL CELL,UR FEW /HPF (NONE SEEN)
[2021-06-09 01:55] LABS: *AMPHETAMINE, URINE NEGATIVE (NEGATIVE); *CANNABINOID, URINE NEGATIVE (NEGATIVE); *COCCAINE, URINE NEGATIVE (NEGATIVE); *OPIATE, URINE NEGATIVE (NEGATIVE); *PHENCYCLIDINE SCREEN,URINE NEGATIVE (NEGATIVE)
[2021-06-09] MEDS ORDERED: LORA0.5T48 PO (02:15)
--- NOTE | 2021-06-09 02:45 | NUR ---
Pt DCed home after completion of second 1L NS bolus via walking. Pt VSS, PE WNL, lungs clear, RRR, normal s1s2 without e/m/g/r, oxygenating and perfusing well, pt has good color, temp and appearance. Pt comletely AAOx4, totally lucid and able to hold a conversation without difficulty. Pt tolerated tx well and shows great improvement over presenting condition. Pt seems to be in good spirits aeb smiling and jovial manner. Aftercare instructions given and pt confirmed understanding of DC instructions. Discussed seeking help, support, treatment for his alcoholism, pt agreed with advice to seek help and treatment for his addiction. Discussed risks and consequences of his alcoholism, pt understood fully. Denies any pain or discomfort, no s/sx of distress present.
[2021-06-09 03:19] VITALS: BP 125/80
== END 2021-06-09 02:45 | disposition home or self-care (01) ==
LOC: ER 23:35
DX: F10.939 Alcohol use, unspecified with withdrawal, unspecified (principal); Y90.8 Blood alcohol level of 240 mg/100 ml or more; E83.42 Hypomagnesemia; R74.01 Elevation of levels of liver transaminase levels; R00.0 Tachycardia, unspecified; F41.9 Anxiety disorder, unspecified; F17.200 Nicotine dependence, unspecified, uncomplicated
CPT/HCPCS: 36415; 80048; 80076; 80307; 80320; 81001; 83690; 83735; 84100; 84484; 85025; 85730; 93005; 96374; 96375; 96376; 99284; J2060 ×3; J2405; J3490; 70030-TC; G0480; J7030